=== PATIENT | female | born 1945 | race Caucasian/White ===

== ENCOUNTER 2019-10-06 10:20 | Inpatient (IN) | payer MEDICARE, MEDICAID, SELFPAY ==
[2019-09-30 14:21] VITALS: BMI 29.2
[2019-10-06] VITALS (16 sets, daily range): BP systolic 103–125; BP diastolic 59–75; PULSE 70–85; RESP 11–23; TEMP 36.1–36.8; O2SAT 94–100; BMI 29.2
--- NOTE | 2019-10-06 | DI.RAD.S_ITS ---
PROCEDURE: XR HIP W PEL IF DONE RT 4V INDICATIONS: INTRAOPERATIVE TOTAL RIGHT HIP TECHNIQUE: 2 view(s) of the hip acquired. COMPARISON: None. FINDINGS: Spot fluoroscopic intraoperative images demonstrating expected intraoperative alignment IMPRESSION: Expected intraoperative appearance Dictated by: Phil Mustafa M.D. on 10/06/2019 at 19:02 Approved by: Phil Mustafa M.D. on 10/06/2019 at 19:03
--- NOTE | 2019-10-06 09:46 | DI.RAD.S_ITS ---
PROCEDURE: XR HIP W PEL IF DONE RT 2V INDICATIONS: post op TECHNIQUE: 2 view(s) of the hip acquired. COMPARISON: [facility], CR, XR PELVIS WITH LATERAL HIP RIGHT, 04/21/2019, 14:43. FINDINGS: Bones: Patient is status post right hip arthroplasty, with hardware components in expected positions. The hip joint appears congruent. The visualized bony structures appear intact. Minimal to mild left hip egenerative narrowing is present. Soft tissues: Overlying postoperative changes are noted. No suspicious soft tissue densities. IMPRESSION: Surgical changes reflecting right hip arthroplasty. Dictated by: Sola Shields M.D. on 10/06/2019 at 17:07 Approved by: Sola Shields M.D. on 10/06/2019 at 17:08
[2019-10-06] MEDS: ACETAMINOPHEN 325 MG TABLET 975 MG PO (10:46)
[2019-10-06] MEDS: CELECOXIB 200 MG CAPSULE PO (10:46)
[2019-10-06] MEDS: PREGABALIN 75 MG CAPSULE PO (10:46)
[2019-10-06] MEDS: VANCOMYCIN 1,000 MG/200 ML PIGGYBACK 200 MG IV (10:47)
--- NOTE | 2019-10-06 11:04 | PM.PREOP ---
Pre-operative Note Interval Note History & Physical reviewed/Exam performed by Physician: Yes Changes to H&P: No
--- NOTE | 2019-10-06 11:05 | P.OP_ITS ---
Operative Date/Time/Diagnoses Date of procedure: 10/06/19 Time of procedure: 11:57 Pre-op diagnosis: Right total hip arthritis Post-op diagnosis: same Procedure & Clinicians Procedure: Right total hip arthroplasty anterior approach Same procedure as scheduled: Yes Indications: The patient has had progressively worsening right hip pain with radiographic changes consistent with arthritis. Non-operative management has failed and the patient has requested total hip replacement. The risks, benefits and alternatives to surgery were discussed with the patient prior to proceeding. Risks discussed included, but were not limited to, failure to relieve pain, leg length discrepancy, dislocation, stiffness, infection, nerve damage, deep venous thrombosis, pulmonary embolism, stroke, coma, heart attack, permanent paralysis and , as well as the potential need for eventual revision of the prosthetic. Surgeon: Gloria Philip Mason Helper: Kade Moura Anesthesia Type: General and Spinal Operative Notes Findings: Severe right hip arthritis, good stability Closure Type: primary Specimen(s): none sent Prosthetic devices, grafts, tissues, transplants, or devices: Philip and Nephew 48 mm R3 cup, size 5 standard offset anthology stem, +0 head Oxinium, one 15mm screw Estimated Blood Loss (mL): 250 Blood products transfused: none Procedure in detail: The patient was brought to the operating room. Patient was carefully positioned in the supine position. Time-out was performed and antibiotics were given. Anesthesia was induced. She was positioned in the on the table in order to allow hyperextension of the hip. The right lower extremity was prepped and draped in a standard sterile fashion. An anterior right hip incision was made 1 fingerbreadth lateral to the anterior superior iliac spine and extended distally towards the greater trochanter. Dissection was carried out through skin and subcutaneous tissues. The skin and subcutaneous tissues were carefully injected with Lidocaine with epi. Superficial hemostasis was achieved. The fascia over the tensor fascia ariana was defined and incised with a knife. Two Allis clamps were used to grasp the fascia. Tensor fascia ariana was retracted laterally. A gelpi retractor was placed. Dissection was carried out down along the neck. The circumflex vessels were carefully identified and cauterized with the Aqua Mantis. There was good visualization of the femoral neck. A Cobra was placed superior to the neck and the gluteus fibers were carefully stripped from that superior aspect of the capsule. A 2nd retractor was placed along the inferior aspect of the neck. The rectus insertion along the capsule was partially released. A 3rd retractor that was then gently placed over the rim of the acetabulum under the rectus. Capsule was carefully incised and released from the intertrochanteric line circumferentially superior to the mid sagittal line and inferiorly to the mid sagittal line until the lesser trochanter was palpable. A tag stitch was placed both in the superior and inferior limb of the capsular insertion. Along the acetabulum capsule was also released up to the mid sagittal 12:00 position. A portion of the labrum was resected. A saw was used to perform an osteotomy at the level of the intertrochanteric line and the junction of the superior femoral neck leaving approximately 1 finger breath of residual inferior neck above the lesser trochanter. A 2nd cut was made along the femoral neck at the base of the head and a napkin ring of neck was removed. Corkscrew was placed in the femoral head and the head was removed without difficulty. Retractors were then repositioned around the acetabulum. Residual labrum was resected and additional osteophytes were removed. A reamer that was 4 mm below the templated size was placed by hand in the acetabulum and it was reamed to centralize the acetabulum. It was then reamed up to 2 under the templated size and fluoroscopy was brought in to confirm the position of the reaming and depth of reaming. I reamed 1 under the anticipated size. A trial cup was placed and noted that it was appropriately sized and fluoroscopy confirmed position and depth. The component was open and inserted without difficulty fluoroscopic imaging was used to confirm that the cup had been adequately seated and was well positioned. A single screw was placed to further stabilize the cup. Neutral poly liner was placed. The cup was tested and noted to be stable. Attention was then directed to the femur. The femur was gently hyperextended additional capsular release was performed as needed in order to allow adequate visualization of the proximal femur with elevation of the femur. Patient was placed in a hyperextended slightly adducted position with maximum external rotation. Box osteotome was used to check for any residual neck as well as sclerotic bone along the trochanter. Bannister pepper was placed in the femur. Additional broaching was performed. Canal finder was used to determine the al ignment of the canal and position. Size 1 broach was placed. The canal was then appropriately broached up to the templated size as long as there was adequate stability of the broach and serial advancement of the broach without excessive impingement. Specific attention was directed at avoiding varus attempting to direct the distal aspect of the broach more anteriorly and avoiding excessive anteversion. Trial reduction showed acceptable range of motion, good stability, no posterior impingement, congregational of leg length and appropriate lateral shuck. I also hyperflexed the hip and checked that there was no impingement anteriorly and there was good stability with flexion, adduction and internal rotation. Marcaine and Exparel were injected.. The stem was placed without difficulty. Repeat trial reduction and x-ray showed acceptable overall position, length, and no evidence of the femoral fracture. Final head was placed. Wound was meticulously irrigated with normal saline. The hip was reduced and additional Exparel and Marcaine were injected. The capsule was closed with interrupted nonabsorbable sutures. The fascia of the tensor was closed with interrupted and running Vicryl. No drain was placed. Any tensor fascia ariana muscle that appeared to be contused or injured which was a minimal amount was carefully resected. Capsule around the tensor was injected with Exparel and Marcaine. The skin was closed with barbed stitches for the subcutaneous tissue and skin. We also used surgical glue. The wound was dressed sterilely. Brief Betadine soak was also used and was meticulously irrigated with normal saline. Patient was transferred to recovery room in satisfactory condition. Complications: none Post-operative Condition: stable Disposition: Acute Care Plan for aftercare: The patient will be maintained on a standard total hip repla cement protocol with weight bearing as tolerated and anterior hip precautions. The patient will receive Aspirin and sequential compression devices for DVT prophylaxis. The patient will be discharged home when safe for the home environment.
[2019-10-06] MEDS: CEFAZOLIN 2 GM/100 ML FROZ.PIGGY IV ×2 (12:10→20:02)
--- NOTE | 2019-10-06 12:43 | SUR.OPER ---
Supine on padded [place] table with bilateral legs secured in padded positioning boots and suspended in positioning spars, operative leg in traction per surgeon. Head on one pillow. Arm on non-operative side secured on padded armboard <90 degrees abduction. Arm on operative side padded and resting across chest then secured with tape over sheet. Padded perineal post in place per surgeon.
[2019-10-06] MEDS: SODIUM CHLORIDE IRRIG SOLUTION 250 ML, EPINEPHrine 1 MG IRR (12:49)
[2019-10-06] MEDS: BUPIVACAINE LIPOSOME 266 MG/20 ML VIAL INJ (12:50)
[2019-10-06] MEDS: SODIUM CHLORIDE IRRIG SOLUTION 250 ML, POVIDONE-IODINE SPONGE STICKS 1 APPLIC IRR (12:51)
[2019-10-06] MEDS: BUPIVACAINE 0.25% W/ EPI (PF) 10 ML VIAL 60 ML INJ (12:51)
[2019-10-06] MEDS: fentaNYL 100 MCG/2 ML INJ IV ×2 (15:44→15:53)
[2019-10-06] MEDS: HYDROMORPHONE 2 MG INJ IV ×2 (15:46→15:55)
[2019-10-06] MEDS: LACTATED RINGERS 1,000 ML 42 ML IV (15:54)
[2019-10-06] MEDS: LACTATED RINGERS 1,000 ML 125 ML IV (17:03)
[2019-10-06] MEDS: IBUPROFEN 400 MG TABLET PO ×2 (18:15→21:23)
[2019-10-06] MEDS: OXYCODONE IR 5 MG TABLET PO ×2 (18:16→21:23)
[2019-10-06] MEDS: ONDANSETRON 4 MG/2 ML INJ IV (18:18)
[2019-10-06] MEDS: ACETAMINOPHEN 325 MG TABLET 650 MG PO (20:16)
[2019-10-06] MEDS: ASPIRIN EC 81 MG TABLET PO (20:16)
[2019-10-06] MEDS: DOCUSATE 100 MG CAPSULE PO (20:16)
[2019-10-06] MEDS: OFLOXACIN 0.3% OTIC 5 ML 1 DROPS EAR-LEFT (20:19)
--- NOTE | 2019-10-06 21:53 | PC.NURSE ---
A&OX4, 95%RA. cont pulse ox. pain 03/23, administered oxcodone, tylenol and ibuprofen. pt voided using the bedpan. pt not OOB. pt education regarding ant hip precaution. oriented pt to room. call light in reach. bed alarm active.
[2019-10-07 00:10] VITALS: BP 112/72; PULSE 93; RESP 16; TEMP 36.1; O2SAT 96
[2019-10-07] MEDS: ONDANSETRON 4 MG/2 ML INJ IV (00:22)
[2019-10-07] MEDS: OXYCODONE IR 5 MG TABLET PO ×5 (00:23→20:51)
[2019-10-07] MEDS: IBUPROFEN 400 MG TABLET PO ×4 (00:23→17:01)
[2019-10-07 03:40] VITALS: BP 128/62; PULSE 85; RESP 16; TEMP 36.8; O2SAT 94
[2019-10-07] MEDS: CEFAZOLIN 2 GM/100 ML FROZ.PIGGY IV (04:07)
[2019-10-07] MEDS: LACTATED RINGERS 1,000 ML 125 ML IV (04:07)
[2019-10-07 05:50] LABS: Hematocrit 32.5 % (36-46); Hemoglobin 10.8 g/dL (12.0-16.0)
--- NOTE | 2019-10-07 07:30 | P.PN_ITS ---
Subjective Subjective Date Patient Seen: 10/07/19 Time Patient Seen: 07:30 Interval history: POD #1 s/p right total hip arthroplasty with Dr. Philip. Patient has not been mobilizing yet. She has been using a bedpan. She has her SCDs on and is taking ASA and Plavix. She has a history of a stroke. She has a history of drug abuse with narcotics. Exam Vital Signs (past 8 hours): - 10/07/19 00:10 10/07/19 03:40 Temperature 97.0 F L 98.2 F Pulse Rate 93 H 85 Respiratory Rate 16 16 Blood Pressure 112/72 128/62 Pulse Oximetry 96 94 Oxygen Delivery Method Room Air Oxygen Flow Rate 0 Narrative Exam Narrative: Patient lying in bed in NAD. She is alert and oriented X3. Dres sing is CDI. Calves are soft, compressible, and nontender bilaterally. she is able to actively dorsiflex and plantar flex. Dressing on hip is CDI. Objective Labs Result Diagrams: 10/07/19 05:25 Labs: Laboratory Results - last 24 hr 10/07/19 05:25 Hgb 10.8 L Hct 32.5 L Assessment & Plan Post-op Postoperative Procedures: Procedures Operation Date: 10/06/19 12:15 Actual Procedures Side Surgeon p Total Hip Arthroplasty/Anterior Approach Right Gloria Brandon Philip MD Patient mobilize with physical therapy today, and encouraged her to get up to use the bathroom. She will follow anterior hip precautions. Patient has history of stroke so recommending she continue Plavix and ASA for DVT prophylaxis. She can continue oxycodone, ibuprofen, and Tylenol for pain control. She states she has prescription for oxycodone at home at her sponsor is holding onto. Patient will likely discharge home in next 1-2 days once mobilizing safely with adequate pain control. Quality VTE Deep Vein Thrombosis/Pulmonary Embolism Present on Admission: No
[2019-10-07 07:55] VITALS: BP 148/76; PULSE 88; RESP 17; TEMP 37; O2SAT 97
--- NOTE | 2019-10-07 08:01 | PC.NURSE ---
Assess- Patient is A&Ox3. She denies pain at this time. Used bedpan x1 and is using her L.leg well to move. She wants to be independent but explained to her that we are here to help her. She was able to scoot herself up into the bed by herself. Néstor from Physical Therapy is working on getting patient up for the first time. She denies any numbness or tingling in her R.leg and has ice to area. She has a aquacel dressing in place and it is cdi.
[2019-10-07] MEDS: ASPIRIN EC 81 MG TABLET PO ×2 (08:40→20:51)
[2019-10-07] MEDS: CLOPIDOGREL 75 MG TABLET PO (08:41)
[2019-10-07] MEDS: ROSUVASTATIN 10 MG TABLET 40 MG PO (08:41)
[2019-10-07] MEDS: ACETAMINOPHEN 325 MG TABLET 650 MG PO ×2 (08:41→20:52)
[2019-10-07] MEDS: AMLODIPINE 5 MG TABLET PO (08:42)
[2019-10-07] MEDS: DOCUSATE 100 MG CAPSULE PO ×2 (08:42→20:52)
--- NOTE | 2019-10-07 09:05 | PT.IIE ---
Current Diagnoses Unilateral primary osteoarthritis, right hip (10/06/19) Surgery Performed Operation Date: 10/06/19 12:15 Actual Procedures p Total Hip Arthroplasty/Anterior Approach(Right) - Gloria Philip MD Surgical History (Last Updated 09/30/19 @ 14:28 by Samantha Burrows, JODY) History of arthroscopy of knee (Acute) History of tonsillectomy (Acute) Status post cholecystectomy (Acute) Medical History (Last Updated 10/06/19 @ 11:14 by Marlin Manzano, JODY) Anxiety (Acute) Arthritis (Acute) Bruise (Acute) CVA (cerebral vascular accident) (Acute) Depression (Acute) Gall bladder disease (Acute) Hepatitis C (Acute) Hyperlipemia (Acute) Hypertension (Acute) Kidney stones (Acute) Pre-diabetes (Acute) Primary localized osteoarthritis of right hip (Acute) Psoriasis (Acute) PTSD (post-traumatic stress disorder) (Acute) Wears glasses (Acute) Wears partial dentures (Acute) Physical Therapy Inpatient Evaluation/Re-Eval M1 PT/OT-IP Prior Functional Status Start: 10/06/19 18:39 Freq: NEEDED Status: Active Protocol: Document 10/07/19 07:52 (Rec: 10/07/19 09:05 [email or web address]) Medical Review Prior Functional Status Medical History Reviewed Yes Diet/Fluid Consistency Regular Communication no communication deficits noted. Able to make needs known Mobility and Gait Pt used bilateral SPCs for all mobility at home and community. She stated she normally mobilizes slowly d/t severe R hip pain. Activities of Daily Living and IADL's Pt is independent for ADLs with Bilateral SPCs. She often has friend Mati to help her in house cleaning and cat sitting. Pt was able to drive. Prior Functional Level (Other details) Pt stated she had multiple falls within the past half year d/t her ongoing fluid issue of her inner ear canal who is currently receiving ear drop medication to manage. Social History Household Members none Living Arrangements Mobile home Number of Floors (Floors) One Floor Number of Stairs To Enter/Railing? Pt has a ramp with R rail. Home Environment High Toilet,Walk in Shower Home Equipment Four Wheel Walker,Bedside Commode,Shower Seat with Backrest,Hand Held Shower,Grab Bars In Shower Employment Status Unemployed Additional Social History Comment Pt lives alone in [place] and stated she has multiple friends to assist her as needed. Friend Mati Mcmahan will be her primary CG, and Katelin who lives next door and her friend Geovanna will assist as needed. M2 PT-IP Current Condition Start: 10/06/19 18:39 Freq: NEEDED Status: Active Protocol: Document 10/07/19 07:52 HH (Rec: 10/07/19 09:05 [email or web address]) Physical Therapy Current Condition Current Condition Evaluation Date 10/07/19 Treatment Diagnosis R HARISH anterior approach, difficulty in walking Onset Date 10/06/19 Precautions Anterior Hip Precautions No Hip Extension,No Hip External Rotation Weight Bearing Status Weight Bearing Status Weight Bear as Tolerated M3 PT-IP Subjective Start: 10/06/19 18:39 Freq: NEEDED Status: Active Protocol: Document 10/07/19 07:52 HH (Rec: 10/07/19 09:05 [email or web address]) Subjective Physical Therapy Visit Type Type Initial Evaluation Visit Start Time 07:52 Visit Stop Time 08:20 Total Visit Minutes 28 Number of CUSTOMER SALES ADVISOR Visits 0 Physical Therapy Visit Comments Patient Comments I feel pretty good and doesnt have much pain Patient Goals To go home when she is medically stable. Therapy Pain Assessment Pain When Pain Assessed During Mobility Pain Present Pain Present Pain Reported Location right hip Intensity 3 Scale Used Numeric (1 - 10) Description Aching,Dull Pain Management Techniques Distraction,Timing of Activity with Medications M4 PT-IP Mobility and Gait Start: 10/06/19 18:39 Freq: NEEDED Status: Active Protocol: Document 10/07/19 07:52 HH (Rec: 10/07/19 09:05 [email or web address]) PT-Bed Mobility Assessment Supine to Sit Supine to Sit Contact Guard Assistance Scooting Scooting to Edge of Bed Contact Guard Assistance PT-Transfer Assessment Sit to and From Stand Sit to and from Stand Contact Guard Assistance,Use of Upper Extremities Equipment Transfer Assistive Device Gait Belt,Front Wheeled Walker Transfers Transfer Destination Bed,Chair Transfer Technique amb with FWW Transfer Ability Level of Assist Contact Guard Assistance Comments Mobility Comments Pt was in bed upon assessment. reports pain 3/10 only without significant discomfort . Pt completed supine to long sit at first but had difficulty pivoting her R LE to L side EOB. Educated pt to use gait belt and she was able to lift RLE afterwards. She overall performed bed mobility slowly. She then scooted towards EOB and stood up with CGA and FWW. Pt reports she slight dizziness but felt normal after standing 30 secs. Pt then amb to hallway for a total of 212 feet with FWW CGA . Pt amb with antalgic step to gait pattern with excessive R lateral weight shift, then progressed to 1/2 step through pattern. She then returned to bedside chair with CGA and properly used B UEs to descend to chair safely. call light within reach. Gait Assessment Gait Gait Assistance Required: Contact Guard Assist Distance (Feet) 212 Able to Maintain Weight Bearing Status Yes During Gait Assistive Devices Assistive Device Gait Belt,Front Wheeled Walker Orthotic/Prosthetic Devices or Brace: No Gait Deviations General Gait Pattern Antalgic,Decreased Stride Length,Decreased Feet Clearance,Lateral Trunk Lean, Step-to Gait Factors Limiting Gait Function Factors Limiting Gait Function Decreased Activity Tolerance, Decreased Strength,Limited Range of Motion,Pain,Poor Balance Comments Gait Comments see mobility comments. Stair Climbing Assessment Comments Stair Climbing Comments pt does not have stairs PT-Balance Assessment Sitting Balance and Reactions Static Sitting Balance Ability Normal Dynamic Sitting Balance Ability Normal Standing Balance and Reactions Static Standing Balance Ability Normal Dynamic Standing Balance Ability Good Device Used FWW M5 PT-IP Objective Assessments Start: 10/06/19 18:39 Freq: NEEDED Status: Active Protocol: Document 10/07/19 07:52 (Rec: 10/07/19 09:05 [email or web address]) Orientation Orientation/Cognition Level of Alertness Alert Orientation Name,Age,Birthday,Month,Date, Year,Day of Week,Place, Situation Language Function Ability No Deficits Noted Safety Awareness Understands Safety Issues Memory Description No Deficits Noted Gross Range of Motion Upper Extremity ROM Assessment Within Functional Limits Lower Extremity ROM Assessment Right Impaired Strength Upper Extremity Strength Assessment Within Functional Limits Lower Extremity Strength Assessment Right Impaired Hip 4/5 Knee 4+/5 Coordination Assessment Gross Coordination Gross Coordination WNL Sensation Assessment Sensation Gross Sensation WNL Light Touch Intact Proprioception (Position) Intact Muscle Tone Muscle Tone WNL Yes M6 PT-IP Treatment Start: 10/06/19 18:39 Freq: NEEDED Status: Active Protocol: Document 10/07/19 07:52 (Rec: 10/07/19 09:05 [email or web address]) Physical Therapy Treatment Exercises Exercises Ankle Pumps,Gluteal Sets,Quad Sets Education Education Provided Precautions,Weight Bearing Status,Post-Op Packet,Safety M7 PT-IP Assessment and Plan Start: 10/06/19 18:39 Freq: NEEDED Status: Active Protocol: Document 10/07/19 07:52 (Rec: 10/07/19 09:05 [email or web address]) PT Summary Assessment and Plan Potential Rehabilitation Potential Excellent Status of Condition at Evaluation Stable Summary Impairments Pain,ROM,Strength,Balance,Bed Mobility,Transfers,Gait, Activity Tolerance Assessment Summary Pt is a low complexity s/p POD 2 R HARISH with anterior approach. Pt did fairly well for PT assessment and no significant discomfort reported. She was able to complete bed mobility, transfer and gait training with CGA and FWW. However, she did c/o dizziness during positional changes d/t her fluid filled inner ear but she is currently managing with prescribed ear drop. Pt also lives alone which is her primary limiting factor to be d/c home. She reports she will have multiple friends to assist as needed so CG training will be needed prior to d/c. Goals Bed Mobility Goal Standby Assistance Transfer Goal Standby Assistance,Cane,Front Wheeled Walker,Four Wheeled Walker Gait Goal Standby Assistance,Cane,Front Wheel Walker,Four Wheel Walker Gait Distance 300 Other Goals amb with 4WW/ B SPCs Days to Meet Goals 5 Frequency of Treatment Frequency Of Treatment Twice a Day Treatment Plan Physical Therapy Treatment Plan Bed Mobility Training,Transfer Training,Gait Training, Therapeutic Exercise,Balance Retraining,Post Op Education, Discharge Planning,Hot or Cold Pack,Neuromuscular Re-ed Other Recommendations and Next Treatment CG training for mobility, use Focus of gait belt adjust 4WW and attempt gait training review precautions Recommendations To Nursing Amount of Assist Needed 1 Person Assist Discharge Recommendations PT Discharge Recommendations Home with Assistance, Outpatient PT Equipment Needed for Home Before FWW if pt is not safe for 4WW Discharge Transportation Needs at Discharge Private Vehicle
--- NOTE | 2019-10-07 10:45 | PC.NURSE ---
Assess- Patient is awake and states that her pain level is a 6/10. Given Oxycodone 5mg, tylenol, and ibuprofen for discomfort. R.hip with aquacel dressing in place, cdiAldair Marrufo denies any numbness or tingling to r. extremity. She is indecisive when making decisions and did try to get out of bed once to get her walker. She has been told with a reminder that she needs to call for help. Bed alarm is in place.
[2019-10-07 12:00] VITALS: BP 148/73; PULSE 87; RESP 16; TEMP 36.8; O2SAT 96
--- NOTE | 2019-10-07 13:10 | CM.DANOTE ---
DCP Assessment: EMR reviewed: Patient is a 74 yr old female admitted for Rt HARISH preformed by Dr. Philip. PCP is Dr. Long. CM/RN met with patient at the bedside and explained role. Patient was alert and orientedx3 at time of CM/Rn visit. Patient currently lives in a mobile home with ramp access into her home. Patients has a friend Mati Houston who comes over a few days a week to help clean. Mati will be helping patient during her recovery . DME: patient has FWW, cane, and an elevated toilet seat at home. Patient is [place] with all ADL's and drives her self. PT evaluation done and recommends home with assistance. I: Medicare and medicaid. Plan: D/C home with caregiver Mati Houston. No identified D/C planning needs noted at this time. CM department will continue to follow incase any D/C planning needs arise. Alisha Philip RN Discharge Planning/Care Management CM Discharge Assessment Start: 10/07/19 13:08 Freq: Status: Active Protocol: Document 10/07/19 13:08 (Rec: 10/07/19 13:10 [id number]) Discharge Planning Assessment Assigned Nnps Alisha Philip RN Advance Directives? No: will do upon admit History Provided By Patient Has Patient been admitted in last 30 No days? Prior Living Arrangements Mobile home Household Members none Type of transporation used prior to Drives own vehicle admit Independent with ADL's Yes Is patient alert and oriented? Yes Caregiver for Another No DME Already Rented / Owned Bath Bench,FWW / Walker,Cane Discharge Plan Home Referrals Initiated None needed Whiteboard Updated in Patient Room with Yes name and ext. # of Nnps Review Status In Process Next Review Type Continued Stay Review Pre-Anesthesia Assessment Start: 09/29/19 16:27 Freq: Status: Complete Protocol: Document 09/30/19 14:21 J (Rec: 09/30/19 15:02 [facility] [id number]) Pre-Anesthesia Assessment PAC Comment Quite active, very energetic and talkative Preferred Name Niru Assessment Completed With Patient Primary Care Provider Chidi Long Seen Specialist in Last 12 Months Yes Specialist Seen Hotel Manager Comment Neuro - Brittell; Chetan - cardiac Primary Language Romansh [employer] Software Consultant Required No Height 162.56 cm Weight 77.111 kg Body Mass Index (BMI) 29.2 Hearing Ability Normal Visual Impairment Partially Limited Visual Assist Glasses Dentition Type Teeth, Natural Present,Teeth, Missing,Partial- Lower Barriers to Learning Visual Other Aids No Comment Plans to leave partial at home Hx Anesthesia Reactions Yes: N&V Hx Family Anesthesia Reaction No Hx Malignant Hyperthermia No Hx Blood Transfusions No Hx Blood Transfusion Reaction No Anesthesia Review Requested No Shop Steward No alcohol intake former 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 Smoking Status Former smoker Tobacco type cigarettes Has it been 2 weeks or less since Yes patient quit smoking how long ago did patient quit smoking quit 09/28/19; using nicotine lozenge Substance Use Type former substance user Comment Active in AA, sponsors others Pain Present Pain Reported Comment right hip Musculoskeletal Symptoms Abnormal Gait,Back Pain, Difficulty Walking,Joint Pain, Joint Stiffness,Joint Swelling ,Limited Range of Motion History of Falling (Recent or History of No ) Patient is completely paralyzed or No completely immobile Ambulatory Aid Crutches/cane/walker Prosthesis or Orthotic Device Cane Gait/Transferring Weak,Impaired Mental Status Oriented to own ability Is patient on oxygen? No Does patient have DENTON/SOB No Hx Sleep Apnea No CPAP/BIPAP use not prescribed Will Bring CPAP/BIPAP DOS No Suspected Sleep Apnea No Currently Taking a Beta Uriah No Can You Climb a Flight of Stairs Without No SOB Hx Chest Pain No Hx SOB No Hx Syncope or Dizziness No Anti-Coagulant Therapy Yes: Plavix - instr to stop 5 days pre-op Has a Hotel Manager Yes Cardiac Testing Yes: Stress test Hx Pacemaker/ICD No Pacemaker Rep Required? No Diet Type At Home Regular dysphagia No Urinary Catheter Present No Hx Urinary Self Catheterization No Diabetes No Patient No Lactating No Hx Drug Resistant Organism No Presence of External or Internal Medical No Devices Have you traveled outside the [facility] in the last 30 days? Marital Status Lives With none Prior Living Arrangements Mobile home Number of Stairs To Enter/Railing? Stairs and ramp Support System Friend(s),Support Group Does the Patient Have Assistance After Yes Surgery Patient Discharge Plan Description Half-Way Facility/Rehab Comment plans 1 week rehab, then home, poss to pet-sitter; many friends Feels Safe in Current Environment Yes Been Physically Hurt or Threatened By a No Person in Current Environment Do you have thoughts of harming yourself None or others? Are you currently considering suicide? No Do you have a plan to hurt yourself or No Plan others? Do You Have Any Spiritual Beliefs That No: Anabaptism May Affect Your HC Choices? Do You Have Any Cultural Practices That No May Affect Your HC Choices? Spiritual Referral In-House Fuller Brush Man Who Can We Speak to About Patient's Care Friends & Family Identifying Code for Release of Patient Declined Information Health Care Proxy/Next of Kin Mati Houston Emergency Contact Name Mati Houston Advance Directives? No: will do upon admit Power of Baler Operator Yes Power of Baler Operator Name Kendall Patiño PAC Instructions Assistance for 24 hours post- op,Do not shave/clip surgical site,Durable medical equipment ,Medications to take/avoid, Nasal antibiotic,No ETOH/ petroleum product on skin DOS, NPO,Ortho class,Post-op transportation,Pre-op antibiotic,Pre-surgical wash, Sensory aids,Sturdy shoes/ comfortable clothes,Do not bring valuables and remove jewelry
--- NOTE | 2019-10-07 14:39 | PT.IPTN ---
Current Diagnoses Unilateral primary osteoarthritis, right hip (10/06/19) Surgery Performed Operation Date: 10/06/19 12:15 Actual Procedures p Total Hip Arthroplasty/Anterior Approach(Right) - Gloria Philip MD Physical Therapy Treatment Note M2 PT-IP Current Condition Start: 10/06/19 18:39 Freq: NEEDED Status: Active Protocol: Document 10/07/19 07:52 HH (Rec: 10/07/19 09:05 HH [email or web address]) Physical Therapy Current Condition Current Condition Evaluation Date 10/07/19 Treatment Diagnosis R HARISH anterior approach, difficulty in walking Onset Date 10/06/19 Precautions Anterior Hip Precautions No Hip Extension,No Hip External Rotation Weight Bearing Status Weight Bearing Status Weight Bear as Tolerated M3 PT-IP Subjective Start: 10/06/19 18:39 Freq: NEEDED Status: Active Protocol: Document 10/07/19 14:08 KS (Rec: 10/07/19 15:41 KS [id number]) Subjective Physical Therapy Visit Type Type Treatment Note Visit Start Time 14:08 Visit Stop Time 14:39 Total Visit Minutes 31 Number of EMISSIONS REPAIR TECHNICIAN Visits 1 Physical Therapy Visit Comments Patient Comments Pt agreeable to do therapy. Pts friend Mati present during treatment. Therapy Pain Assessment Pain When Pain Assessed After Treatment Pain Present Pain Present Pain Reported Location right hip Intensity 4 Scale Used Numeric (1 - 10) Pain Management Techniques Apply Cold,Re-positioning M4 PT-IP Mobility and Gait Start: 10/06/19 18:39 Freq: NEEDED Status: Active Protocol: Document 10/07/19 14:08 KS (Rec: 10/07/19 15:41 KS [id number]) PT-Bed Mobility Assessment Supine to Sit Supine to Sit Contact Guard Assistance Sit to Supine Sit to Supine Minimal Assistance Scooting Scooting to Edge of Bed Standby Assistance PT-Transfer Assessment Sit to and From Stand Sit to and from Stand Contact Guard Assistance,Use of Upper Extremities Equipment Transfer Assistive Device Gait Belt,Front Wheeled Walker Transfers Transfer Destination Bed,Toilet Transfer Technique pt ambulated w/ FWW Transfer Ability Level of Assist Contact Guard Assistance Comments Mobility Comments Pt was in bed upon arrival from therapy and reported slight nausea. CGA for sup<> sit and SBA for scooting EOB. Pt is somewhat impulsive and required cues to push up from bed and stop pulling on FWW. CGA for sit<>stand. After ambulation, pt was CGA for stand<>sit in chair, pt stated she needed to use bathroom, CGA for sit<>stand, and SBA for stand<>sit on commode and sit<>stand from commode w/ use of hand rail. Pt requested to get back in bed and reported fatigue. CGA and cues to reach back and slowly lower for stand<>sit in bed. Min A for guidance of LE for sit<>sup. Pt left in bed w/ SCDs on and all needs in reach, pts friend Mati in room. Gait Assessment Gait Gait Assistance Required: Contact Guard Assist Distance (Feet) 230 Able to Maintain Weight Bearing Status Yes During Gait Assistive Devices Assistive Device Gait Belt,Front Wheeled Walker Orthotic/Prosthetic Devices or Brace: No Gait Deviations General Gait Pattern Antalgic,Decreased Stride Length,Decreased Feet Clearance,Lateral Trunk Lean, Step-to Gait Factors Limiting Gait Function Factors Limiting Gait Function Decreased Activity Tolerance, Decreased Strength,Limited Range of Motion,Pain,Poor Balance Comments Gait Comments Pt ambulated ~230 feet, from bed around hallway loop, back to chair, to bathroom and back to bed. Pt has decreased stride length and foot clearance due to pain and weakness. Pts gait improved w/ cues for upright posture and heel toe walking. Stair Climbing Assessment Comments Stair Climbing Comments pt does not have stairs PT-Balance Assessment Sitting Balance and Reactions Static Sitting Balance Ability Normal Dynamic Sitting Balance Ability Normal Standing Balance and Reactions Static Standing Balance Ability Normal Dynamic Standing Balance Ability Good Device Used FWW M5 PT-IP Objective Assessments Start: 10/06/19 18:39 Freq: NEEDED Status: Active Protocol: Document 10/07/19 07:52 (Rec: 10/07/19 09:05 [email or web address]) Orientation Orientation/Cognition Level of Alertness Alert Orientation Name,Age,Birthday,Month,Date, Year,Day of Week,Place, Situation Language Function Ability No Deficits Noted Safety Awareness Understands Safety Issues Memory Description No Deficits Noted Gross Range of Motion Upper Extremity ROM Assessment Within Functional Limits Lower Extremity ROM Assessment Right Impaired Strength Upper Extremity Strength Assessment Within Functional Limits Lower Extremity Strength Assessment Right Impaired Hip 4/5 Knee 4+/5 Coordination Assessment Gross Coordination Gross Coordination WNL Sensation Assessment Sensation Gross Sensation WNL Light Touch Intact Proprioception (Position) Intact Muscle Tone Muscle Tone WNL Yes M6 PT-IP Treatment Start: 10/06/19 18:39 Freq: NEEDED Status: Active Protocol: Document 10/07/19 14:08 KS (Rec: 10/07/19 15:41 KS [id number]) Physical Therapy Treatment Exercises Exercises Ankle Pumps,Gluteal Sets,Quad Sets,Heel Slides Education Education Provided Precautions,Weight Bearing Status,Post-Op Packet,Safety M7 PT-IP Assessment and Plan Start: 10/06/19 18:39 Freq: NEEDED Status: Active Protocol: Document 10/07/19 14:08 KS (Rec: 10/07/19 15:41 KS [id number]) PT Summary Assessment and Plan Potential Rehabilitation Potential Excellent Status of Condition at Evaluation Stable Summary Impairments Pain,ROM,Strength,Balance,Bed Mobility,Transfers,Gait, Activity Tolerance Assessment Summary Pt is doing well with her mobility and ambulation. CGA for sup<>sit, sit<>stand, but was SBA when using bathroom. Pt ambulated ~230 ft w/o need for rest break. Completed post op LE strengthening exercises . Instructed pt to complete exercises every hour. Pt requested to get back in bed and reported fatigue. She is impulsive and needed cues for hand placement and slow lowering back into bed from stand<>sit w/ FWW. Min A for getting LE back into bed. Goals Bed Mobility Goal Standby Assistance Transfer Goal Standby Assistance,Cane,Front Wheeled Walker,Four Wheeled Walker Gait Goal Standby Assistance,Cane,Front Wheel Walker,Four Wheel Walker Gait Distance 300 Other Goals amb with 4WW/ B SPCs Days to Meet Goals 5 Frequency of Treatment Frequency Of Treatment Twice a Day Treatment Plan Physical Therapy Treatment Plan Bed Mobility Training,Transfer Training,Gait Training, Therapeutic Exercise,Balance Retraining,Post Op Education, Discharge Planning,Hot or Cold Pack,Neuromuscular Re-ed Other Recommendations and Next Treatment CG training for mobility, use Focus of gait belt adjust 4WW and attempt gait training review precautions Recommendations To Nursing Amount of Assist Needed 1 Person Assist Discharge Recommendations PT Discharge Recommendations Home with Assistance, Outpatient PT Equipment Needed for Home Before FWW if pt is not safe for 4WW Discharge Transportation Needs at Discharge Private Vehicle
[2019-10-07 15:49] VITALS: BP 103/48; PULSE 68; RESP 18; TEMP 37.3; O2SAT 96
--- NOTE | 2019-10-07 16:08 | PM.CHAP ---
Spent 15 minutes with pt. pt. is mu-ism, and was very appreciative of a sausage tier visit. Doing well after surgery. Hoping to go home tomorrow.
[2019-10-07 19:37] VITALS: BP 123/69; PULSE 84; RESP 18; TEMP 36.9; O2SAT 96
[2019-10-07] MEDS: OFLOXACIN 0.3% OTIC 5 ML 1 DROPS EAR-LEFT (20:52)
[2019-10-08] MEDS: IBUPROFEN 400 MG TABLET PO ×3 (00:50→13:05)
[2019-10-08] MEDS: OXYCODONE IR 5 MG TABLET PO ×2 (00:51→09:54)
[2019-10-08 00:55] VITALS: BP 126/66; PULSE 91; RESP 16; TEMP 36.6; O2SAT 94
[2019-10-08] MEDS: ONDANSETRON 4 MG ODT PO (02:34)
[2019-10-08 03:34] VITALS: BP 105/62; PULSE 86; RESP 16; TEMP 36.4; O2SAT 98
--- NOTE | 2019-10-08 08:29 | PM.DS.1 ---
History of Present Illness History of Present Illness Date Patient Seen: 10/08/19 Time Patient Seen: 08:29 Chief complaint: [id number] R HARISH Narrative: The history and physical is contained in the chart previously completed note. Please refer to that note for this information. Discharge Providers Provider Date of admission: 10/06/19 10:20 Discharge Date: 10/08/19 Primary care physician: Chidi Long Consults: 09/30/19 15:02 Consult to Pastoral Services Routine Comment: Would love a visit, Kate 10/06/19 09:46 Consult to Anesthesiology Routine Comment: Consulting Provider: Anesthesiologist Reason for consultation: Regional block for post operative pain control 10/06/19 16:38 Consult to Discharge Planning Routine Comment: Consult to Physical Therapy Evaluate & Treat Comment: Physician Instructions: post op HARISH protocol Consult to Respiratory Therapy Evaluate & Treat Comment: Physician Instructions: Evaluate and treat Discharge provider: Roverto Shine MD Summary Hospital Course Discharge Diagnosis: 1. Right hip osteoarthritis 2. Mild post hemorrhagic anemia. 3. History of opioid substance abuse Exam Vital Signs (past 8 hours): - 10/08/19 00:55 10/08/19 03:34 Temperature 97.9 F 97.6 F Pulse Rate 91 H 86 Respiratory Rate 16 16 Blood Pressure 126/66 105/62 Pulse Oximetry 94 98 Oxygen Delivery Method Room Air Oxygen Flow Rate 0 Narrative Exam Narrative: Right hip wound is dressed with minimal drainage on the bandage. Calf is soft. Thigh is soft. Light touch and motion are intact in left lower extremity. Length and rotation of the left lower extremity appear appropriate. Objective Labs Result Diagrams: 10/07/19 05:25 Discharge Plan Discharge Plan Patient Disposition: Home Discharge orders & Medications Prescriptions: New acetaminophen 325 mg Tablet 650 mg PO TID 30 Days Qty: 180 RF: 0 aspirin 81 mg Tablet,Delayed Release (Dr/Ec) 81 mg PO BID 42 Days Qty: 84 RF: 0 ibuprofen 400 mg Tablet 400 mg PO Q6HR 30 Days RF: 0 oxycodone 5 mg Tablet 5 mg PO Q4H PRN (Reason: Pain, Moderate (4-6)) Qty: 40 RF: 0 Continued clopidogrel 75 mg Tablet 75 mg PO DAILY RF: 0 amlodipine 5 mg Tablet 5 mg PO DAILY RF: 0 losartan 100 mg Tablet 100 mg PO DAILY RF: 0 rosuvastatin 40 mg Tablet 40 mg PO DAILY RF: 0 cyclobenzaprine 10 mg Tablet 10 mg PO TID PRN (Reason: Muscle Spasms) RF: 0 ofloxacin 0.3 % Drops 1 drp EAR-LEFT BEDTIME RF: 0 nicotine (polacrilex) 2 mg Lozenge 2 mg BUCCAL Q2-4H PRN (Reason: Stopped Smoking) RF: 0 Follow up/Referrals: Chidi Long [Primary Care Provider] - Gloria Phliip MD [Physician] - 1 Week Discharge Health Status Multidrug resistant organism: No MDRO Diet/Activity/Treatments Diet: Diet as Tolerated and Regular Activity: You may bear weight as tolerated on your right leg. Cold/Heat Therapy: Apply ice to the right hip and thigh for 15 minutes of every hour as needed for pain control. Skin/Wound/Dressing Care Report to your healthcare provider any signs of infection, such as:: chills, fever, night sweats, increased pain, unusual drainage and unusual redness Dressing: Leave the dressing intact until follow-up. You may shower with the dressing in place. Visit Report/Discharge Packet Instructions: DI for Hip Replacement, DI for Prescription Opioid Use Stand Alone Forms: Surgery Discharge Discharge Data Primary Care Provider: Chidi Long Quality VTE Deep Vein Thrombosis/Pulmonary Embolism Present on Admission: No
--- NOTE | 2019-10-08 08:46 | CM.DPC ---
DCP Discharge Home Per Ortho, pt medically stable to d/c home today with no identified barriers to discharge. Per RN, no concerns noted at this time. Per PT, recommending safe d/c home when stable. Plan: Patient to d/c home via friend POV today and no SW needs at this time. JAVI Brooks
[2019-10-08 09:00] VITALS: BP 111/61; PULSE 77; RESP 18; TEMP 36.8; O2SAT 97
--- NOTE | 2019-10-08 09:38 | PT.IPTN ---
Current Diagnoses Unilateral primary osteoarthritis, right hip (10/06/19) Surgery Performed Operation Date: 10/06/19 12:15 Actual Procedures p Total Hip Arthroplasty/Anterior Approach(Right) - Gloria Philip MD Physical Therapy Treatment Note M2 PT-IP Current Condition Start: 10/06/19 18:39 Freq: NEEDED Status: Active Protocol: Document 10/07/19 07:52 HH (Rec: 10/07/19 09:05 HH [email or web address]) Physical Therapy Current Condition Current Condition Evaluation Date 10/07/19 Treatment Diagnosis R HARISH anterior approach, difficulty in walking Onset Date 10/06/19 Precautions Anterior Hip Precautions No Hip Extension,No Hip External Rotation Weight Bearing Status Weight Bearing Status Weight Bear as Tolerated M3 PT-IP Subjective Start: 10/06/19 18:39 Freq: NEEDED Status: Active Protocol: Document 10/08/19 09:12 KS (Rec: 10/08/19 10:01 KS [id number]) Subjective Physical Therapy Visit Type Type Treatment Note Visit Start Time 09:12 Visit Stop Time 09:38 Total Visit Minutes 26 Number of BOBBIN STRIPPER Visits 2 Physical Therapy Visit Comments Patient Comments Pt agreeable to work w/ therapy. Patient Goals To go home when she is medically stable. Therapy Pain Assessment Pain When Pain Assessed At Rest Pain Present Pain Present Pain Reported Location right hip Intensity 4 Scale Used Numeric (1 - 10) Pain Management Techniques Apply Cold,Re-positioning M4 PT-IP Mobility and Gait Start: 10/06/19 18:39 Freq: NEEDED Status: Active Protocol: Document 10/08/19 09:12 KS (Rec: 10/08/19 10:01 KS [id number]) PT-Bed Mobility Assessment Supine to Sit Supine to Sit Standby Assistance Sit to Supine Sit to Supine Standby Assistance Scooting Scooting to Edge of Bed Standby Assistance Scooting Up and Down in Bed Standby Assistance PT-Transfer Assessment Sit to and From Stand Sit to and from Stand Contact Guard Assistance,1 Person Assistance Equipment Transfer Assistive Device Gait Belt,Front Wheeled Walker Transfers Transfer Destination Bed Transfer Technique pt ambulated w/ FWW Transfer Ability Level of Assist Contact Guard Assistance Comments Mobility Comments Pt was in bed upon arrival from therapy. financial reporting manager present discussing pts d/c home this afternoon. Instructed pt on how to use gait belt to self assist R LE out of and into bed. Pt successfully used gait belt to lift R LE to rest on L LE and then used L LE to guide R LE out of bed. SBA for sup<>sit, and scooting EOB. Pt remains somewhat impulsive w/ FWW and needed min cues for pushing up from bed. CGA for sit<>stand w/ FWW. After ambulation, pt returned to bed CGA for stand< >sit w/ FWW and used L LE to help lift R LE into bed SBA. Pt was then able to use L LE to bridge and shift into middle of bed and then scoot up in bed SBA. Pt left in bed w/ all needs in reach. Gait Assessment Gait Gait Assistance Required: Contact Guard Assist Distance (Feet) 220 Able to Maintain Weight Bearing Status Yes During Gait Assistive Devices Assistive Device Gait Belt,Front Wheeled Walker Orthotic/Prosthetic Devices or Brace: No Gait Deviations General Gait Pattern Antalgic,Decreased Stride Length,Decreased Feet Clearance,Lateral Trunk Lean, Step-to Gait Factors Limiting Gait Function Factors Limiting Gait Function Decreased Activity Tolerance, Decreased Strength,Limited Range of Motion,Pain,Poor Balance Comments Gait Comments Pt ambulated ~220 ft from room and around hallway/loop. Pt still has antalgic gait partially d/t pain and limited range of motion, but pt also seems to be guarding R LE because of pre-surgery pain w/ ambulation. Pts gait pattern improved w/ cues for heel toe walking and more equalized step length. Pt did not report any increase in pain secondary to ambulation. Stair Climbing Assessment Comments Stair Climbing Comments pt does not have stairs PT-Balance Assessment Sitting Balance and Reactions Static Sitting Balance Ability Normal Dynamic Sitting Balance Ability Normal Standing Balance and Reactions Static Standing Balance Ability Normal Dynamic Standing Balance Ability Good Device Used FWW M5 PT-IP Objective Assessments Start: 10/06/19 18:39 Freq: NEEDED Status: Active Protocol: Document 10/07/19 07:52 (Rec: 10/07/19 09:05 [email or web address]) Orientation Orientation/Cognition Level of Alertness Alert Orientation Name,Age,Birthday,Month,Date, Year,Day of Week,Place, Situation Language Function Ability No Deficits Noted Safety Awareness Understands Safety Issues Memory Description No Deficits Noted Gross Range of Motion Upper Extremity ROM Assessment Within Functional Limits Lower Extremity ROM Assessment Right Impaired Strength Upper Extremity Strength Assessment Within Functional Limits Lower Extremity Strength Assessment Right Impaired Hip 4/5 Knee 4+/5 Coordination Assessment Gross Coordination Gross Coordination WNL Sensation Assessment Sensation Gross Sensation WNL Light Touch Intact Proprioception (Position) Intact Muscle Tone Muscle Tone WNL Yes M6 PT-IP Treatment Start: 10/06/19 18:39 Freq: NEEDED Status: Active Protocol: Document 10/08/19 09:12 KS (Rec: 10/08/19 10:01 DE [id number]) Physical Therapy Treatment Education Education Provided Precautions,Weight Bearing Status,Post-Op Packet,Safety Other Treatments Other Treatment Performed Pt education on self assist R LE, encouraged participation in piost-op exercises. M7 PT-IP Assessment and Plan Start: 10/06/19 18:39 Freq: NEEDED Status: Active Protocol: Document 10/08/19 09:12 KS (Rec: 10/08/19 10:01 DE [id number]) PT Summary Assessment and Plan Potential Rehabilitation Potential Excellent Status of Condition at Evaluation Stable Summary Impairments Pain,ROM,Strength,Balance,Bed Mobility,Transfers,Gait, Activity Tolerance Assessment Summary Pt is improving w/ mobility and ambulation. She is SBA for all bed mobility and CGA and min cues for transfers d/t slight impulsivity. Pt educated on self assist of R LE using gait belt. Pt ambulated ~220 ft w/ FWW and cues for heel toe walking and equal stride length. Stressed importance of post op exercises. Goals Bed Mobility Goal Standby Assistance Transfer Goal Standby Assistance,Cane,Front Wheeled Walker,Four Wheeled Walker Gait Goal Standby Assistance,Cane,Front Wheel Walker,Four Wheel Walker Gait Distance 300 Other Goals amb with 4WW/ B SPCs Days to Meet Goals 5 Frequency of Treatment Frequency Of Treatment Twice a Day Treatment Plan Physical Therapy Treatment Plan Bed Mobility Training,Transfer Training,Gait Training, Therapeutic Exercise,Balance Retraining,Post Op Education, Discharge Planning,Hot or Cold Pack,Neuromuscular Re-ed Other Recommendations and Next Treatment Assess carryover of post-op Focus exercises and precautions. Recommendations To Nursing Amount of Assist Needed 1 Person Assist Discharge Recommendations PT Discharge Recommendations Home with Assistance, Outpatient PT Equipment Needed for Home Before FWW if pt is not safe for 4WW Discharge Transportation Needs at Discharge Private Vehicle
[2019-10-08] MEDS: NICOTINE 2 MG 2 EACH SL (09:50)
[2019-10-08] MEDS: CLOPIDOGREL 75 MG TABLET PO (09:54)
[2019-10-08] MEDS: AMLODIPINE 5 MG TABLET PO (09:54)
[2019-10-08] MEDS: ASPIRIN EC 81 MG TABLET PO (09:54)
[2019-10-08] MEDS: ACETAMINOPHEN 325 MG TABLET 650 MG PO (09:54)
[2019-10-08] MEDS: DOCUSATE 100 MG CAPSULE PO (09:54)
[2019-10-08] MEDS: ROSUVASTATIN 10 MG TABLET 40 MG PO (09:54)
--- NOTE | 2019-10-08 11:37 | PC.NURSE ---
Pt is discharging home this afternoon around 1300. Oxycodone given and helpful for pain. Dressing is aqucel and dry.
== END 2019-10-08 13:30 | disposition home or self-care (01) | DRG 470 ==
PROVIDERS: Admitting Provider Orthopaedic Surgery; PCP Internal Medicine; Visit Provider Orthopaedic Surgery
PROC: 0SR902Z Replacement of Right Hip Joint with Metal on Polyethylene Synthetic Substitute, Open Approach (ICD-10-PCS; CPT 27130; principal; 2019-10-06 12:15)
DX: M16.11 Unilateral primary osteoarthritis, right hip (principal); I10 Essential (primary) hypertension; F32.9 Major depressive disorder, single episode, unspecified; F17.210 Nicotine dependence, cigarettes, uncomplicated; Z86.73 Personal history of transient ischemic attack (TIA), and cerebral infarction without residual deficits
CPT/HCPCS: 36415; 73502; 73503; 76000; 85014; 85018; 97110; 97116; 97161; 97530; C1776; C9290; J0171; J0690; J1100; J1170; J2250; J2405; J2704; J3010

== ENCOUNTER → 2019-10-11 11:56 | Outpatient (CLI) | payer MEDICARE, MEDICAID, SELFPAY ==
[2019-10-06 10:43] VITALS: BMI 29.2
--- NOTE | 2019-10-11 | DI.US.S_ITS ---
PROCEDURE: US PERIPH VENOUS LOW EXTREM RT INDICATIONS: RT LEG PAIN AND SWELLING, S/P HIP REPLACEMENT X 5 DAYS TECHNIQUE: Real-time imaging, as well as color and pulse Doppler interrogation, were performed of the lower extremity deep veins from the inguinal ligament to the popliteal fossa. COMPARISON: None. FINDINGS: The common femoral, femoral and popliteal veins are normally compressible, and free of intraluminal thrombus. Color and pulse Doppler demonstrate normal phasic intraluminal flow. There is normal augmentation response to distal compression maneuver. IMPRESSION: No evidence of deep vein thrombosis of the right lower extremity. Dictated by: Victorino Ramos M.D. on 10/11/2019 at 13:27 Approved by: Victorino Ramos M.D. on 10/11/2019 at 13:29
== END ==
PROVIDERS: PCP Internal Medicine; Visit Provider Orthopaedic Surgery
DX: M79.604 Pain in right leg (principal); M79.89 Other specified soft tissue disorders; Z96.649 Presence of unspecified artificial hip joint
CPT/HCPCS: 93971

== ENCOUNTER 2019-10-11 12:54 | Emergency (ER) | payer MEDICARE, MEDICAID, SELFPAY ==
[2019-10-06 10:43] VITALS: BMI 29.2
[2019-10-11 13:06] VITALS: BP 139/62; PULSE 84; RESP 16; TEMP 37.2; O2SAT 98; BMI 30.3
[2019-10-11 13:30] VITALS: BP 135/75; PULSE 84; RESP 18; O2SAT 97
[2019-10-11 13:48] VITALS: PULSE 86
[2019-10-11 14:00] VITALS: BP 146/70; PULSE 86; RESP 18; O2SAT 97
--- NOTE | 2019-10-11 14:07 | ED.EXTPRO ---
HPI - Extremity Problem <DALJIT Gill - Last Filed: 10/12/19 01:02> General Chief complaint: Extremity Problem,Nontraumatic Stated complaint: RIGHT LEG SWELLING Time Seen by Provider: 10/11/19 13:47 Source: patient Mode of arrival: Wheelchair Limitations: no limitations History of Present Illness HPI Narrative: This is a 74-year-old female, former smoker, who presents to ED with significant other with chief complain of right leg swelling, discomfort, decreased movement and tingling to the affected leg, nausea, right leg warmth, subjective fever, and constipation. The patient had R hip total arthroplasty with Dr. Philip 5 days ago and discharged to home 2 days post surgery. Patient reports pain increases with movement and states she has been out of bed without difficulty using a walker at home. She had contacted the office after the surgery and was instructed to come in to ED for ultrasound test to rule out DVT. Patient is currently taking baby aspirin and Plavix. Pain has managed with oxycodone, Tylenol, Celebrex (was unable to verify with record). Patient has a history of stroke and right vision loss. Related Data Home Medications Medication Instructions Recorded Confirmed amlodipine 5 mg PO DAILY 09/30/19 10/11/19 clopidogrel 75 mg PO DAILY 09/30/19 10/11/19 losartan 100 mg PO DAILY 09/30/19 10/11/19 nicotine (polacrilex) 2 mg BUCCAL Q2-4H PRN 09/30/19 10/11/19 ofloxacin 1 drp EAR-LEFT BEDTIME 09/30/19 10/11/19 rosuvastatin 40 mg PO DAILY 09/30/19 10/11/19 hydroxyzine pamoate 25 mg PO Q6H PRN 10/11/19 10/11/19 Previous Rx's Medication Instructions Recorded acetaminophen 650 mg PO TID 30 Days #180 tab 10/08/19 aspirin 81 mg PO BID 42 Days #84 tab 10/08/19 ibuprofen 400 mg PO Q6HR 30 Days tab 10/08/19 oxycodone 5 mg PO Q4H PRN #40 tab 10/08/19 Allergies Allergy/AdvReac Type Severity Reaction Status Date / Time No Known Drug Allergies Allergy Verified 10/06/19 11:08 Review of Systems <DALJIT Gill - Last Filed: 10/12/19 01:02> Review of Systems Narrative: General: Denies (+) subjective fever, chills, fatigue, malaise, sweats. HEENT: Denies sinus pain, ear pain, sore throat, difficulty swallowing, dizziness. Respiratory: Denies dyspnea, cough, wheezing, hemoptysis, sputum. Cardiovascular: Denies chest pain, palpitations, orthopnea, edema. Gastrointestinal: Denies nausea, vomiting, abdominal pain, diarrhea, (+) constipation, melena. : Denies dysuria, frequency, incontinence, hematuria, urinary retention. Musculoskeletal: See HPI Skin: Denies rash, skin lesions, or (+) bruise on surgical site. Neurologic: Denies weakness, headache, numbness, change in speech, confusion, seizures, incoordination. Psychiatric: No concerning psychosocial issues. 12-point review of systems is negative except for those stated above. Patient History <DALJIT Gill - Last Filed: 10/12/19 01:02> Medical History (Updated 10/11/19 @ 18:01 by DALJIT Gill) Anxiety (Acute) Arthritis (Acute) Bruise (Acute) CVA (cerebral vascular accident) (Acute) Depression (Acute) Gall bladder disease (Acute) Hepatitis C (Acute) Hyperlipemia (Acute) Hypertension (Acute) Kidney stones (Acute) Pre-diabetes (Acute) Primary localized osteoarthritis of right hip (Acute) Psoriasis (Acute) PTSD (post-traumatic stress disorder) (Acute) Wears glasses (Acute) Wears partial dentures (Acute) Surgical History (Updated 10/12/19 @ 00:37 by DALJIT Gill) H/O total hip arthroplasty (Acute) History of arthroscopy of knee (Acute) History of tonsillectomy (Acute) Status post cholecystectomy (Acute) Social History household members: none Smoking Status: Former smoker alcohol intake: former Smoking Status: Former smoker alcohol intake frequency: 0-2 drinks per day Substance Use Type: former substance user Exam <DALJIT Gill - Last Filed: 10/12/19 01:02> Narrative Exam Narrative: General appearance: well developed, well nourished, in no acute distress. Head: normocephalic, atraumatic, no scalp lesions, non-tender. ENT: Bilateral auditory canals and tympanic membranes clear. Hearing grossly intact. Nose without bleeding, purulent discharge, septal hematoma or deviation. Turbinate without erythema or swelling. Facial sinuses nontender to palpate. Mucous membrane moist, no mucosal lesion. Throat without erythema, tonsillar hypertrophy or exudate. Uvula in midline, airway patent. Neck/Thyroid: neck supple, full range of motion, no visible masses or meningeal signs. No JVD, non-tender without lymphadenopathy. Skin: no suspicious rashes, lesions over visible areas. Warm and dry and appropriate color for ethnicity. Heart: no clubbing, no cyanosis, no edema. S1 and S2 normal. RRR w/o murmurs, clicks, or bruits. Lungs: Breathing even and unlabored. No stridor. No accessory muscles used. Able to speak in full sentences. Chest: normal shape and expansion. Abdomen: non-obese, non-distended. Neurologic: alert and oriented. Cognitive exam, ELECTRONEURODIAGNOSTIC TECHNICIAN and PNS grossly intact on informal exam. Psych: good eye contact, normal affect. Initial Vital Signs Initial Vital Signs: Vital Signs Temperature 99 F 10/11/19 13:06 Pulse Rate 84 10/11/19 13:06 Respiratory Rate 16 10/11/19 13:06 Blood Pressure 139/62 10/11/19 13:06 Pulse Oximetry 98 10/11/19 13:06 Extrem Right lower extremity: edema Details: non-pitting (generalized edema, hard and painful with deep palpation), no joint enlargement, hip/thigh (no significant warmth or erythema compared to L limb) Details: tenderness, swelling and ecchymosis (around the surgical site), lower leg Details: tenderness and non-pitting edema (generalized in R lower limb); no erythema, ankle Details: swelling and abnormal ROM (flexion and extension) Details: pain with active ROM and pain with passive ROM and foot Details: tenderness (generalized R lower extremity), toes with normal ROM, edema and vascular exam Details: dorsalis pedis pulse present <Tyler Zambrano MD - Last Filed: 10/12/19 21:36> Initial Vital Signs Initial Vital Signs: Vital Signs Temperature 99 F 10/11/19 13:06 Pulse Rate 84 10/11/19 13:06 Respiratory Rate 16 10/11/19 13:06 Blood Pressure 139/62 10/11/19 13:06 Pulse Oximetry 98 10/11/19 13:06 Scores <[facility] - Last Filed: 10/12/19 01:02> GCS Oli coma scale eye opening: Spontaneous Oli coma scale verbal response: Orientated Oli coma scale motor response: Obey commands Oli coma scale total score: 15 Course <[facility] - Last Filed: 10/12/19 01:02> Orders Ordered: Discontinued Medications Morphine Sulfate (Morphine) 2 mg IV NOW ONE Stop: 10/11/19 14:11 Last Admin: 10/11/19 14:51 Dose: 2 mg Documented by: MORRIS Ondansetron HCl (Zofran) 4 mg IV NOW ONE Stop: 10/11/19 14:11 Last Admin: 10/11/19 14:51 Dose: 4 mg Documented by: MORRIS Vital Signs Vital signs: Vital Signs - 8 hr 10/11/19 18:35 Pulse Rate 83 Blood Pressure 122/59 L Pulse Oximetry 97 <Tyler Zambrano MD - Last Filed: 10/12/19 21:36> Orders Ordered: Discontinued Medications Morphine Sulfate (Morphine) 2 mg IV NOW ONE Stop: 10/11/19 14:11 Last Admin: 10/11/19 14:51 Dose: 2 mg Documented by: MORRIS Ondansetron HCl (Zofran) 4 mg IV NOW ONE Stop: 10/11/19 14:11 Last Admin: 10/11/19 14:51 Dose: 4 mg Documented by: MORRIS Vital Signs Vital signs: Vital Signs - 8 hr 10/11/19 18:35 Pulse Rate 83 Blood Pressure 122/59 L Pulse Oximetry 97 MDM - Extremity (Nontraumatic) <[facility] - Last Filed: 10/12/19 01:02> Differential Diagnosis Differential diagnosis: Likely cellulitis, lower extremity edema, deep vein thrombosis of lower extremity and other (myositis, hematoma) Medical Records Attestation: I reviewed the patient's medical records. Lab Data Result diagrams: 10/11/19 13:27 10/11/19 13:27 Labs: Lab Results 10/11/19 10/11/19 10/11/19 Range/Units 13:27 13:27 13:27 WBC 6.9 (4.5-11.0) X10^3/uL RBC 3.51 L (4.0-5.2) X10^6/uL Hgb 9.8 L (12.0-16.0) g/dL Hct 29.5 L (36-46) % MCV 84.1 (80-100) fL MCH 28.1 (26-34) PG MCHC 33.4 (30-36) % RDW 14.5 (11.6-14.8) % Plt Count 244 (150-400) X10^3/uL Neut % (Auto) 69.3 (50-75) % Lymph % (Auto) 20.8 L (25-40) % Cherokee % (Auto) 8.1 (3-14) % Eos % (Auto) 1.4 L (2-4) % Baso % (Auto) 0.4 (0-2) % Neut # (Auto) 4800 (1680-9951) /uL Lymph # (Auto) 1400 (7032-2967) /uL Cherokee # (Auto) 600 (0-900) /uL Eos # (Auto) 100 (0-450) /uL Baso # (Auto) 0 (0-100) /uL ESR (0-20) MM/HR PT 12.3 (10.1-12.7) SECONDS INR 1.1 (0.9-1.3) APTT 29 (26.4-36.2) SECONDS Sodium 141 (137-145) mmol/L Potassium 4.3 (3.4-5.1) mmol/L Chloride 102 (98-107) mmol/L Carbon Dioxide 28 (22-32) mmol/L BUN 20 H (7-17) mg/dL Creatinine 0.60 (0.52-1.04) mg/dL Estimated GFR > 60.0 (>60) mL/min BUN/Creatinine Ratio 33.3 H (6-22) Glucose 134 H (80-110) mg/dL Calcium 8.9 (8.4-10.2) mg/dL Total Bilirubin 0.7 (0.2-1.3) mg/dL AST 27 (14-36) IU/L ALT 17 (<35) IU/L Alkaline Phosphatase 66 (38-126) U/L Total Creatine Kinase (30-135) U/L C-Reactive Protein (<1.0) mg/dL Total Protein 7.1 (6.3-8.2) g/dL Albumin 3.8 (3.5-5.0) g/dL Globulin 3.3 (1.7-4.1) g/dL Albumin/Globulin Ratio 1.2 (1.0-2.8) 10/11/19 10/11/19 Range/Units 13:27 13:27 WBC (4.5-11.0) X10^3/uL RBC (4.0-5.2) X10^6/uL Hgb (12.0-16.0) g/dL Hct (36-46) % MCV (80-100) fL MCH (26-34) PG MCHC (30-36) % RDW (11.6-14.8) % Plt Count (150-400) X10^3/uL Neut % (Auto) (50-75) % Lymph % (Auto) (25-40) % Cherokee % (Auto) (3-14) % Eos % (Auto) (2-4) % Baso % (Auto) (0-2) % Neut # (Auto) (9443-3491) /uL Lymph # (Auto) (8273-9821) /uL Cherokee # (Auto) (0-900) /uL Eos # (Auto) (0-450) /uL Baso # (Auto) (0-100) /uL ESR 68 H (0-20) MM/HR PT (10.1-12.7) SECONDS INR (0.9-1.3) APTT (26.4-36.2) SECONDS Sodium (137-145) mmol/L Potassium (3.4-5.1) mmol/L Chloride (98-107) mmol/L Carbon Dioxide (22-32) mmol/L BUN (7-17) mg/dL Creatinine (0.52-1.04) mg/dL Estimated GFR (>60) mL/min BUN/Creatinine Ratio (6-22) Glucose (80-110) mg/dL Calcium (8.4-10.2) mg/dL Total Bilirubin (0.2-1.3) mg/dL AST (14-36) IU/L ALT (<35) IU/L Alkaline Phosphatase (38-126) U/L Total Creatine Kinase 307 H (30-135) U/L C-Reactive Protein 6.7 H (<1.0) mg/dL Total Protein (6.3-8.2) g/dL Albumin (3.5-5.0) g/dL Globulin (1.7-4.1) g/dL Albumin/Globulin Ratio (1.0-2.8) Imaging Data US-DVT RLE: Radiologist's Impression: [address] [address] Ultrasound Report Signed Patient: Niru Patiño JMR#: [id number] : 7Acct:[id number] Age/Sex: 74 / FDate of Service: 10/11/19 Loc: [place] Accession Number: [id number] Procedure: US periph venous low extrem rt Ordering Provider: Gloria Philip MD PROCEDURE: US PERIPH VENOUS LOW EXTREM RT INDICATIONS: RT LEG PAIN AND SWELLING, S/P HIP REPLACEMENT X 5 DAYS TECHNIQUE: Real-time imaging, as well as color and pulse Doppler interrogation, were performed of the lower extremity deep veins from the inguinal ligament to the popliteal fossa. COMPARISON: None. FINDINGS: The common femoral, femoral and popliteal veins are normally compressible, and free of intraluminal thrombus. Color and pulse Doppler demonstrate normal phasic intraluminal flow. There is normal augmentation response to distal compression maneuver. IMPRESSION: No evidence of deep vein thrombosis of the right lower extremity. Dictated by: Victorino Ramos M.D. on 10/11/2019 at 13:27 Approved by: Victorino Ramos M.D. on 10/11/2019 at 13:29 [facility] Narrative Medical decision making narrative: The patient had US for DVT test on RLE prior coming into ED which was arranged by [facility] orthpedist office after she contacted this morning with R leg pain, swelling, tingling, decreased movement. Negative DVT on right lower extremity per ultrasound. Right lower extremity has generalized nonpitting edema, no significant redness noted. Temperature on right lower limb as same as left lower limb. Dressing on R hip clean, dry and intact. Surrounding area without erythema, warmth but ecchymosis. No leukocytosis or elevated neutrophil noted. Patient was afebrile with stable vital signs. H/H today decreased to 9.8/29.5 from 10.8/32.5 when she was discharged to home. Normal platelets. ESR 68 with CRP of 6.7 . CK 307 today. CMP shows that patient is mildly dehydrated as evidenced by increased BUN 20 and BUN/Cr ratio of 33.3. Attempted to contact Dr. Philip to discuss the findings but was not able to reach her. Dr. Shine consulted and discussed the findings. It was assured that elevated ESR and CRP is expected post surgically. Patient reports much improved nausea and pain after IV Zofran 4 mg and morphine of 2 mg. she was able to tolerate fluids and advised increase oral fluid intake for elevated CK. Patient advised to add Miralax for constipation and PRN [place] Ducolax and increase hydration and high fiber diet. Patient advised to f/u with [place] orthopedist in 1-2 days. Return precautions were discussed with patient and patient verbalized understanding. <Tyler Zambrano MD - Last Filed: 10/12/19 21:36> Lab Data Labs: Lab Results 10/11/19 10/11/19 10/11/19 Range/Units 13:27 13:27 13:27 WBC 6.9 (4.5-11.0) X10^3/uL RBC 3.51 L (4.0-5.2) X10^6/uL Hgb 9.8 L (12.0-16.0) g/dL Hct 29.5 L (36-46) % MCV 84.1 (80-100) fL MCH 28.1 (26-34) PG MCHC 33.4 (30-36) % RDW 14.5 (11.6-14.8) % Plt Count 244 (150-400) X10^3/uL Neut % (Auto) 69.3 (50-75) % Lymph % (Auto) 20.8 L (25-40) % Cherokee % (Auto) 8.1 (3-14) % Eos % (Auto) 1.4 L (2-4) % Baso % (Auto) 0.4 (0-2) % Neut # (Auto) 4800 (1774-6608) /uL Lymph # (Auto) 1400 (6070-9896) /uL Cherokee # (Auto) 600 (0-900) /uL Eos # (Auto) 100 (0-450) /uL Baso # (Auto) 0 (0-100) /uL ESR (0-20) MM/HR PT 12.3 (10.1-12.7) SECONDS INR 1.1 (0.9-1.3) APTT 29 (26.4-36.2) SECONDS Sodium 141 (137-145) mmol/L Potassium 4.3 (3.4-5.1) mmol/L Chloride 102 (98-107) mmol/L Carbon Dioxide 28 (22-32) mmol/L BUN 20 H (7-17) mg/dL Creatinine 0.60 (0.52-1.04) mg/dL Estimated GFR > 60.0 (>60) mL/min BUN/Creatinine Ratio 33.3 H (6-22) Glucose 134 H (80-110) mg/dL Calcium 8.9 (8.4-10.2) mg/dL Total Bilirubin 0.7 (0.2-1.3) mg/dL AST 27 (14-36) IU/L ALT 17 (<35) IU/L Alkaline Phosphatase 66 (38-126) U/L Total Creatine Kinase (30-135) U/L C-Reactive Protein (<1.0) mg/dL Total Protein 7.1 (6.3-8.2) g/dL Albumin 3.8 (3.5-5.0) g/dL Globulin 3.3 (1.7-4.1) g/dL Albumin/Globulin Ratio 1.2 (1.0-2.8) 10/11/19 10/11/19 Range/Units 13:27 13:27 WBC (4.5-11.0) X10^3/uL RBC (4.0-5.2) X10^6/uL Hgb (12.0-16.0) g/dL Hct (36-46) % MCV (80-100) fL MCH (26-34) PG MCHC (30-36) % RDW (11.6-14.8) % Plt Count (150-400) X10^3/uL Neut % (Auto) (50-75) % Lymph % (Auto) (25-40) % [place] % (Auto) (3-14) % Eos % (Auto) (2-4) % Baso % (Auto) (0-2) % Neut # (Auto) (7719-8625) /uL Lymph # (Auto) (2240-9481) /uL Cherokee # (Auto) (0-900) /uL Eos # (Auto) (0-450) /uL Baso # (Auto) (0-100) /uL ESR 68 H (0-20) MM/HR PT (10.1-12.7) SECONDS INR (0.9-1.3) APTT (26.4-36.2) SECONDS Sodium (137-145) mmol/L Potassium (3.4-5.1) mmol/L Chloride (98-107) mmol/L Carbon Dioxide (22-32) mmol/L BUN (7-17) mg/dL Creatinine (0.52-1.04) mg/dL Estimated GFR (>60) mL/min BUN/Creatinine Ratio (6-22) Glucose (80-110) mg/dL Calcium (8.4-10.2) mg/dL Total Bilirubin (0.2-1.3) mg/dL AST (14-36) IU/L ALT (<35) IU/L Alkaline Phosphatase (38-126) U/L Total Creatine Kinase 307 H (30-135) U/L C-Reactive Protein 6.7 H (<1.0) mg/dL Total Protein (6.3-8.2) g/dL Albumin (3.5-5.0) g/dL Globulin (1.7-4.1) g/dL Albumin/Globulin Ratio (1.0-2.8) Discharge Plan Departure Patient Disposition: Home Clinical Impression: Postoperative pain of extremity Discharge Date/Time: 10/11/19 18:35 Activity Restrictions/Additional Instructions: You have been diagnosed with [postoperative pain and swelling in right leg after hip surgery 5 days ago. Ultrasound does not indicate DVT at this time. Mildly decreased blood count but no elevation for WBC. Moderate elevation in ESR and CRP but this is expected after the surgery per orthopedic surgeon. Please hydrate well when you get home. You can continue your medications including baby aspirin and NSAIDS.]. What to do: *Take your medications as directed. *Follow up with your primary care provider in 1-2 days/Dr. Philip call for an appointment. Let them know you were seen in the ED and that we asked you to be seen in follow up. *Return to ED if you have any new, worsening, or concerning symptoms, such as [chest pain, breathing difficulty, unable to tolerate fluids, severe pain, fever or any acute concerns]. Prescriptions: No Action hydroxyzine pamoate 25 mg capsule 25 mg PO Q6H PRN (Reason: as directed) RF: 0 clopidogrel 75 mg Tablet 75 mg PO DAILY RF: 0 amlodipine 5 mg Tablet 5 mg PO DAILY RF: 0 losartan 100 mg Tablet 100 mg PO DAILY RF: 0 rosuvastatin 40 mg Tablet 40 mg PO DAILY RF: 0 ofloxacin 0.3 % Drops 1 drp EAR-LEFT BEDTIME RF: 0 nicotine (polacrilex) 2 mg Lozenge 2 mg BUCCAL Q2-4H PRN (Reason: Stopped Smoking) RF: 0 acetaminophen 325 mg Tablet 650 mg PO TID 30 Days Qty: 180 RF: 0 aspirin 81 mg Tablet,Delayed Release (Dr/Ec) 81 mg PO BID 42 Days Qty: 84 RF: 0 ibuprofen 400 mg Tablet 400 mg PO Q6HR 30 Days RF: 0 oxycodone 5 mg Tablet 5 mg PO Q4H PRN (Reason: Pain, Moderate (4-6)) Qty: 40 RF: 0 Referrals: Chidi Long [Primary Care Provider] - Gloria Philip MD [Physician] -
[2019-10-11 14:17] LABS: Add Manual Diff / Slide Review NO; Basophils Absolute Auto 0 /uL (0-100); Basophils Percent Auto 0.4 % (0-2); Eosinophils Absolute Auto 100 /uL (0-450); Eosinophils Percent Auto 1.4 % (2-4); Hematocrit 29.5 % (36-46); Hemoglobin 9.8 g/dL (12.0-16.0); Lymphocytes Absolute Auto 1400 /uL (1100-4500); Lymphocytes Percent Auto 20.8 % (25-40); Mean Corpuscular HGB Conc 33.4 % (30-36); Mean Corpuscular Hemoglobin 28.1 PG (26-34); Mean Corpuscular Volume 84.1 fL (80-100); Monocytes Absolute Auto 600 /uL (0-900); Monocytes Percent Auto 8.1 % (3-14); Neutrophils Absolute Auto 4800 /uL (1500-7000); Neutrophils Percent Auto 69.3 % (50-75); Platelet Count 244 X10^3/uL (150-400); Red Blood Cell Count 3.51 X10^6/uL (4.0-5.2); Red Cell Distribution Width 14.5 % (11.6-14.8); White Blood Cell Count 6.9 X10^3/uL (4.5-11.0)
[2019-10-11 14:19] LABS: INR 1.1 (0.9-1.3); Prothrombin Time 12.3 SECONDS (10.1-12.7)
[2019-10-11 14:22] LABS: PTT Partial Thromboplastin Tim 29 SECONDS (26.4-36.2)
[2019-10-11 14:31] LABS: Alanine Aminotransferase 17 IU/L (<35); Albumin 3.8 g/dL (3.5-5.0); Albumin Globulin Ratio 1.2 (1.0-2.8); Alkaline Phosphatase 66 U/L (38-126); Aspartate Aminotransferase 27 IU/L (14-36); BUN Creatinine Ratio 33.3 (6-22); Bilirubin Total 0.7 mg/dL (0.2-1.3); Blood Urea Nitrogen 20 mg/dL (7-17); Calcium 8.9 mg/dL (8.4-10.2); Carbon Dioxide 28 mmol/L (22-32); Chloride 102 mmol/L (98-107); Estimated Glomerular Filt Rate > 60.0 mL/min (>60); Globulin 3.3 g/dL (1.7-4.1); Glucose 134 mg/dL (80-110); HEMOLYSIS < 15 (0-50); Potassium 4.3 mmol/L (3.4-5.1); Sodium 141 mmol/L (137-145); Total Protein 7.1 g/dL (6.3-8.2)
[2019-10-11] MEDS: ONDANSETRON 4 MG/2 ML INJ IV (14:51)
[2019-10-11] MEDS: MORPHINE 2 MG/ML INJ IV (14:51)
[2019-10-11 14:56] LABS: Erythrocyte Sedimentation Rate 68 MM/HR (0-20)
[2019-10-11 15:00] VITALS: BP 115/57; PULSE 88; RESP 16; O2SAT 94
[2019-10-11 15:05] LABS: C-Reactive Protein Quant 6.7 mg/dL (<1.0); Creatine Kinase 307 U/L (30-135)
[2019-10-11 18:35] VITALS: BP 122/59; PULSE 83; O2SAT 97
== END 2019-10-11 18:35 | disposition home or self-care (01) ==
PROVIDERS: Emergency Provider Nurse Practitioner Family; PCP Internal Medicine
DX: G89.18 Other acute postprocedural pain (principal); R11.2 Nausea with vomiting, unspecified; E86.0 Dehydration; Z96.669 Presence of unspecified artificial ankle joint; K59.00 Constipation, unspecified; M79.604 Pain in right leg; M79.89 Other specified soft tissue disorders; Z96.649 Presence of unspecified artificial hip joint
CPT/HCPCS: 36415; 80053; 82550; 85025; 85610; 85651; 85730; 86140; 93971; 96374; 96375; 99284; J2270; J2405

== ENCOUNTER → 2023-03-06 07:53 | Outpatient (CLI) | payer MEDICARE, MEDICAID, SELFPAY ==
[2019-10-06 10:43] VITALS: BMI 29.2
--- NOTE | 2023-03-06 07:57 | DI.ECHO.S_ITS ---
[facility] +---------+ [facility] +---------+ : : [address] [place] : : : : [id number] : : : : Phone: [phone]+ Echocardiogram Report + + :Name: ASHLEY NAVARRO Study Date: 03/06/2023 Height: 62 in : :[facility] ReadingLocation: Weight: 165 lb : : Gender: Female BSA: 1.8 m2 : :: 1945 Age: 78 yrs BP: 150/83 mmHg: :Reason For Study: Cardiac Murmur : :Ordering Physician: Chetan, : :Tisha Performed By: Jo Ann Schmitt : :Referring: TISHA BENTON : + + Interpretation Summary 1) Normal left ventricular thickness, size, wall motion, and systolic function (EF 60-65%). 2) Normal right ventricular size and function. 3) There is moderate aortic stenosis (valve area 0.8cm2, mean gradient 14mmHtg, severity ratio 0.28). 4) No prior Echo available for comparison. Procedure: A two-dimensional transthoracic echocardiogram with color flow and Doppler was performed. The study quality was technically adequate. There is no prior echocardiogram noted for this patient. The patient was in normal sinus rhythm during the exam. Left Ventricle: The left ventricle is normal in size. There is normal left ventricular wall thickness. The ejection fraction is estimated to be 60-65%. Left ventricular systolic function appears normal without focal wall motion abnormalities. Diastolic parameters suggest a relaxation abnormality of the left ventricle, consistent with probable normal filling pressures. Right Ventricle: The right ventricle is normal size. The right ventricular systolic function is normal. Atria: The left atrial size is normal. Right atrial size is normal. There is no Doppler evidence for an interatrial shunt. Mitral Valve: The mitral valve is normal. There is mild mitral annular calcification. There is no mitral valve stenosis. There is trace mitral regurgitation. Aortic Valve: The aortic valve is moderately calcified. There is moderate aortic stenosis. The peak aortic velocity is 2.6 m/sec. The aortic valve mean gradient is 14 mmHg. No aortic regurgitation is present. Tricuspid Valve: The tricuspid valve is normal. There is no tricuspid stenosis. No tricuspid regurgitation. Pulmonary artery pressures cannot be estimated because of the lack of a measurable TR jet velocity. Pulmonic Valve: The pulmonic valve leaflets are thin and pliable; valve motion is normal. There is no pulmonic valvular stenosis. There is no pulmonic valvular regurgitation. Great Vessels: The aortic root is normal size. The ascending aorta is normal in size. The pulmonary artery is normal size. The IVC is of normal diameter and collapses greater than 50% with a sniff. This suggests a low right atrial pressure of 3 mm Hg. Pericardium/ Pleura There is no pericardial effusion. There is no pleural effusion. MMode/2D Measurements & Calculations LVIDd: 3.5 cm LVOT diam: 2.0 cm LVIDs: 2.7 cm Ao root diam: 2.8 cm FS: 22.9 % asc Aorta Diam: 2.9 cm EPSS: 1.0 cm IVSd: 1.4 cm LVPWd: 1.4 cm LV eldridge. diameter/BSA (cm/m^2): 2.0 LV sys. diameter/BSA (cm/m^2): 1.5 LA A2 area: 15.2 cm2 RA long axis: 3.8 cm LA A4 area: 14.9 cm2 RA area: 9.2 cm2 LA length (vol): 4.9 cm RA vol: 19.1 ml LA vol: 39.2 ml RA : 10.8 ml/m2 LA vol index: 22.2 ml/m2 RVD1 (basal): 3.0 cm LVLs ap4: 5.7 cm LVLd ap2: 6.8 cm TAPSE_phl: 2.3 cm LVLs ap2: 5.8 cm Doppler Measurements & Calculations Ao V2 max: 260.3 cm/sec LVOT Max Willian: 73.3 cm/sec Ao V2 mean: 177.5 cm/sec LV V1 max P.1 mmHg Ao max P.0 mmHg LV V1 VTI: 18.3 cm Ao mean P.3 mmHg TILA(I,D): 0.83 cm2 Ao V2 VTI: 65.7 cm TILA(V,D): 0.84 cm2 sev ratio: 0.28 TILA indexed to BSA (cm^2/m^2): 0.47 MV E max willian: 80.6 cm/sec PA V2 max: 97.9 cm/sec MV A max willian: 110.0 cm/sec PA V2 mean: 73.5 cm/sec MV E/A: 0.73 PA mean P.0 mmHg Med Peak E' Willian: 4.5 cm/sec PA pr(Accel): 24.6 mmHg E/E' med: 17.8 Lat Peak E' Willian: 6.0 cm/sec E/E' lat: 13.4 E/e' average: 15.6 MV dec time: 0.23 sec MVA(VTI): 2.0 cm2 MV V2 mean: 77.9 cm/sec SV(LVOT): 54.8 ml MV mean P.6 mmHg MV V2 VTI: 27.5 cm AV VR_phl: 0.28 MV P1/2t-pr_phl: 67.0 msec TILA(VTI)/BSA_phl: 0.45 Reading Physician:02:38 PM
== END ==
PROVIDERS: PCP Registered Nurse; Referring Provider Internal Medicine Cardiovascular Disease; Visit Provider Internal Medicine Cardiovascular Disease
DX: I34.81 Nonrheumatic mitral (valve) annulus calcification (principal); I35.0 Nonrheumatic aortic (valve) stenosis; R01.1 Cardiac murmur, unspecified
CPT/HCPCS: 93306

== ENCOUNTER → 2024-08-21 12:58 | Outpatient (CLI) | payer MEDICARE, MEDICAID, SELFPAY ==
[2019-10-06 10:43] VITALS: BMI 29.2
--- NOTE | 2024-08-21 13:00 | DI.ECHO.S_ITS ---
[facility] : : [address] : : [place] : : [id number] : : Phone: [phone] Echocardiogram Report + + :Name: ASHLEY NAVARRO Study Date: 08/21/2024 Height: 62.5 in: :[facility] ReadingLocation: Weight: 162 lb : : Gender: Female BSA: 1.8 m2 : :: 1945 Age: 79 yrs BP: 126/74 mmHg: :Reason For Study: AORTIC VALVE STENOSIS : :Ordering Physician: BALDEMAR, : :TISHA Performed By: Jaylin Shepherd : :Referring: TISHA BENTON : + + Interpretation Summary 1) Normal left ventricular thickness, size, wall motion, and systolic function (EF 55-60%). 2) Normal right ventricular size and function. 3) There is moderate aortic stenosis (valve area 0.9cm2, mean gradient 20mmHtg, severity ratio 0.28). 4) Compared to the Echo done 03/06/2023, no significant change. Procedure: A two-dimensional transthoracic echocardiogram with color flow and Doppler was performed. The study quality was technically adequate. Comparison is made with the echocardiogram of 03/06/2023. The patient was in sinus rhythm with heart rates between 70-82 bpm during the exam. Left Ventricle: The left ventricle is normal in size. There is normal left ventricular wall thickness. The ejection fraction is estimated to be 55-60%. Left ventricular systolic function appears normal without focal wall motion abnormalities. Right Ventricle: The right ventricle is normal in size and function. Atria: The left atrial size is normal. Right atrial size is normal. The interatrial septum is not well visualized. Mitral Valve: The mitral valve leaflets appear mildly thickened, but open well. There is mild mitral annular calcification. There is trace mitral regurgitation. Aortic Valve: The aortic valve is trileaflet. The aortic valve is moderately calcified. The peak aortic velocity is 2.9 m/sec. The aortic valve mean gradient is 20 mmHg. The calculated aortic valve area is 0.9 cm2. There is moderate aortic stenosis. There is trace aortic regurgitation. Tricuspid Valve: The tricuspid valve leaflets are thin and pliable. There is mild tricuspid regurgitation. Pulmonary artery pressures cannot be estimated because of the lack of a measurable TR jet velocity. Pulmonic Valve: The pulmonic valve leaflets are thin and pliable; valve motion is normal. There is no pulmonic valvular regurgitation. Great Vessels: The aortic root is normal size. The ascending aorta is mildly enlarged. The IVC is of normal diameter and collapses greater than 50% with a sniff. This suggests a low right atrial pressure of 3 mm Hg. Pericardium/ Pleura There is no pericardial effusion. There is no pleural effusion. MMode/2D Measurements & Calculations LVIDd: 4.7 cm LVOT diam: 2.1 cm LVIDs: 3.2 cm Ao root diam: 2.9 cm FS: 32.3 % asc Aorta Diam: 3.2 cm IVSd: 0.87 cm Ao Arch Diam (Prox Trans): 2.9 cm LVPWd: 0.86 cm LV eldridge. diameter/BSA (cm/m^2): 2.7 LV sys. diameter/BSA (cm/m^2): 1.8 LA A2 area: 17.7 cm2 RA long axis: 4.7 cm LA A4 area: 19.4 cm2 RA area: 14.1 cm2 LA length (vol): 5.1 cm RA vol: 35.7 ml LA vol: 57.8 ml RA : 20.3 ml/m2 LA vol index: 32.8 ml/m2 IVC diam: 1.1 cm RVD1 (basal): 3.3 cm RVD2 (mid): 3.4 cm TAPSE: 1.8 cm Doppler Measurements & Calculations Ao V2 max: 291.6 cm/sec LVOT Max Willian: 74.2 cm/sec Ao V2 mean: 206.8 cm/sec LV V1 max P.2 mmHg Ao max P.0 mmHg LV V1 VTI: 18.1 cm Ao mean P.7 mmHg TILA(I,D): 0.96 cm2 Ao V2 VTI: 64.5 cm TILA(V,D): 0.87 cm2 sev ratio: 0.28 TILA indexed to BSA (cm^2/m^2): 0.55 MV E max willian: 69.1 cm/sec PA V2 max: 101.7 cm/sec MV A max willian: 115.5 cm/sec PA V2 mean: 71.7 cm/sec MV E/A: 0.60 PA mean P.3 mmHg Med Peak E' Willian: 5.7 cm/sec PA pr(Accel): 39.6 mmHg E/E' med: 12.1 Lat Peak E' Willian: 6.6 cm/sec E/E' lat: 10.5 E/e' average: 11.3 MV dec time: 0.24 sec MVA(VTI): 2.2 cm2 MV V2 mean: 69.4 cm/sec SV(LVOT): 62.1 ml MV mean P.3 mmHg MV V2 VTI: 28.0 cm Reading Physician:12:24 PM
== END ==
LOC: ECHO 12:59
PROVIDERS: PCP Registered Nurse; Referring Provider Internal Medicine Cardiovascular Disease; Visit Provider Internal Medicine Cardiovascular Disease
DX: I08.3 Combined rheumatic disorders of mitral, aortic and tricuspid valves (principal); I77.89 Other specified disorders of arteries and arterioles
CPT/HCPCS: 93306

== ENCOUNTER → 2025-09-12 12:20 | Outpatient (CLI) | payer MEDICARE, MEDICAID, SELFPAY ==
[2019-10-06 10:43] VITALS: BMI 29.2
--- NOTE | 2025-09-12 12:24 | DI.ECHO.S_ITS ---
[facility] : : [address] : : [place] : : [id number] : : Phone: [phone] Echocardiogram Report + + :Name: ASHLEY NAVARRO Study Date: 09/12/2025 Height: 62 in : :[facility] ReadingLocation: Weight: 155 lb : : Gender: Female BSA: 1.7 m2 : :: 1945 Age: 80 yrs BP: 134/71 mmHg: :Reason For Study: Aortic Stenosis : :Ordering Physician: BALDEMAR, : :TISHA Performed By: Arden Anaya : :Referring: TISHA BENTON : + + Interpretation Summary 1) Normal left ventricular thickness, size, wall motion, and systolic function (EF 55-60%). 2) Normal right ventricular size and function. 3) There is moderate aortic stenosis (valve area 1.1cm2, mean gradient 16mmHtg, severity ratio 0.32). 4) Compared to the Echo done 08/21/2024, no signficant change. Procedure: A two-dimensional transthoracic echocardiogram with color flow and Doppler was performed. The study quality was technically adequate. Comparison is made with the echocardiogram of 08/21/2024. The heart rate ranged between 88-94 bpm during the study. Left Ventricle: The left ventricle is normal in size. Left ventricular wall thickness is normal. Left ventricular systolic function appears normal without focal wall motion abnormalities. The ejection fraction is estimated to be 55- 60%. Grade I diastolic dysfunction with normal left atrial pressure. Right Ventricle: The right ventricle is normal in size and function. Atria: The left atrial size is normal. Right atrial size is normal. There is no Doppler evidence for an interatrial shunt. Mitral Valve: The mitral valve leaflets appear mildly thickened. There is mild mitral annular calcification. There is no mitral valve stenosis. There is no mitral regurgitation. Aortic Valve: The aortic valve is moderately calcified. There is moderate aortic stenosis. The calculated aortic valve area is 1.1 cm2. The peak aortic velocity is 2.7 m/sec. The aortic valve mean gradient is 16.4 mmHg. sev ratio: 0.32. There has been no significant change since the previous study. There is trace aortic regurgitation. Tricuspid Valve: The tricuspid valve is not well visualized, but is grossly normal. There is trace tricuspid regurgitation. Pulmonary artery pressures cannot be estimated because of the lack of a measurable TR jet velocity but the IVC suggests a CVP of around 3 mmHg. Pulmonic Valve: The pulmonic valve is not well seen, but is grossly normal. There is trace pulmonic regurgitation. Great Vessels: The aortic root is normal size. There is aortic root sclerosis/calcification. The ascending aorta could not be visualized. The aortic arch could not be visualized. The pulmonary artery is normal size. The IVC is of normal diameter and collapses greater than 50% with a sniff. This suggests a low right atrial pressure of 3 mm Hg. Pericardium/ Pleura There is no pericardial effusion. MMode/2D Measurements & Calculations LVIDd: 4.1 cm LVOT diam: 2.1 cm LVIDs: 2.9 cm Ao root diam: 2.9 cm FS: 29.2 % asc Aorta Diam: 2.9 cm IVSd: 1.00 cm LVPWd: 0.98 cm LV eldridge. diameter/BSA (cm/m^2): 2.4 LV sys. diameter/BSA (cm/m^2): 1.7 LA A2 area: 16.0 cm2 RA long axis: 5.5 cm LA A4 area: 16.3 cm2 RA area: 12.8 cm2 LA length (vol): 5.1 cm RA vol: 25.4 ml LA vol: 43.2 ml RA : 14.8 ml/m2 LA vol index: 25.2 ml/m2 IVC diam: 1.4 cm RVD1 (basal): 3.0 cm RVD2 (mid): 2.8 cm TAPSE: 1.7 cm Doppler Measurements & Calculations Ao V2 max: 269.7 cm/sec LVOT Max Willian: 85.4 cm/sec Ao V2 mean: 191.0 cm/sec LV V1 max P.9 mmHg Ao max P.1 mmHg LV V1 VTI: 15.8 cm Ao mean P.4 mmHg TILA(I,D): 1.1 cm2 Ao V2 VTI: 50.2 cm TILA(V,D): 1.1 cm2 sev ratio: 0.32 TILA indexed to BSA (cm^2/m^2): 0.63 MV E max willian: 67.7 cm/sec PA V2 max: 113.6 cm/sec MV A max willian: 102.7 cm/sec PA V2 mean: 97.0 cm/sec MV E/A: 0.66 PA mean P.9 mmHg Med Peak E' Willian: 5.3 cm/sec PA pr(Accel): 26.3 mmHg E/E' med: 12.8 Lat Peak E' Willian: 5.4 cm/sec E/E' lat: 12.6 E/e' average: 12.7 MV dec time: 0.15 sec SV(LVOT): 54.0 ml Qp/Qs (V,Ao): 1.0/8.4 Qp/Qs (V,LVOT): 1.0/1.4 Reading Physician:04:48 PM
[2025-09-12 12:56] LABS: Hematocrit 41.7 % (36-46); Hemoglobin 14.0 g/dL (12.0-16.0); Mean Corpuscular HGB Conc 33.6 % (30-36); Mean Corpuscular Hemoglobin 28.2 PG (26-34); Mean Corpuscular Volume 84.0 fL (80-100); Platelet Count 227 X10^3/uL (150-400)
[2025-09-12 13:14] LABS: Blood Urea Nitrogen 27 mg/dL (7-17); Calcium 9.3 mg/dL (8.4-10.2); Carbon Dioxide 22 mmol/L (22-32); Chloride 109 mmol/L (98-107); Cholesterol 142 mg/dL (140-199); Estimated Glomerular Filt Rate > 60 mL/min (>60); Glucose 127 mg/dL (70-99); HDL Cholesterol 44 mg/dL (40-60); HEMOLYSIS 33 (0-50); Potassium 4.5 mmol/L (3.4-5.1); Sodium 141 mmol/L (137-145); Triglycerides 348 mg/dL (35-150)
== END ==
PROVIDERS: PCP Registered Nurse; Referring Provider Internal Medicine Cardiovascular Disease; Visit Provider Internal Medicine Cardiovascular Disease
DX: I34.81 Nonrheumatic mitral (valve) annulus calcification (principal); I35.0 Nonrheumatic aortic (valve) stenosis; E78.5 Hyperlipidemia, unspecified; I10 Essential (primary) hypertension
CPT/HCPCS: 36415; 80048; 80061; 85027; 93306